=== PATIENT | female | born 2000 | race American Indian/Alaskan Native ===

== ENCOUNTER → 2018-10-14 | Outpatient (CLI) | payer OTHER | LOC: M RAD 11:25 | DX: Z34.83 Encounter for supervision of other normal pregnancy, third trimester (principal) | CPT/HCPCS: 76811 ==

== ENCOUNTER → 2018-11-26 | Outpatient (CLI) | payer OTHER ==
--- NOTE | 2018-11-26 16:59 | REP ---
Obstetric sonography: History: Supervision of , growth study. Size less than dates. 38 weeks 4 days. Findings: Scanning through the gravid uterus demonstrates a viable single intrauterine gestation in a cephalic lie. motion is observed and heart rate is recorded at 136 beats per minute. A posterior fundal grade 3 placenta is seen without evidence of previa. Amniotic fluid is subjectively normal. Closed cervical length is 2.6 cm. No extrauterine abnormalities observed. There has been less than expected interval growth. The following anatomic structures are identified today and felt to be unremarkable: cranium, cavum, lungs, left and right ventricular outflow tract views, diaphragm, left-sided stomach, abdominal wall cord insertion, three-vessel umbilical cord, kidneys and bladder. Biometry chart: BPD 9.2 cm = 37 weeks 1 day HC 33.1 cm = 37 weeks 5 days AC 33.2 cm = 37 weeks 1 day FL 6.8 cm = 34 weeks 6 days HL 6.0 cm = 34 weeks 4 days HC/AC ratio normal 1.0. Cephalic index normal 0.78. Estimated weight 2987 grams, 6 pounds 9 ounces, 34th percentile for 38 weeks 1 day. ENRICO normal 11.9 cm. S/D ratio normal 2.01. Impression: Viable single intrauterine gestation at 36 weeks 2 days by today's composite criteria. Expected gestational age estimate based on prior sonography is 38 weeks 0 days. LAYO by prior sonography December 10, 2018. Estimated weight is at the 34th percentile. Somewhat less than expected interval growth. Electronically Signed by Derick Schmidt MD 11/26/2018 07:43 P
== END ==
LOC: M RAD 15:08
PROVIDERS: ATTEND Obstetrics & Gynecology
DX: Z36.89 Encounter for other specified antenatal screening (principal); Z3A.36 36 weeks gestation of pregnancy

== ENCOUNTER 2018-12-11 07:42 | Inpatient (IN) | payer OTHER ==
[2018-12-11] VITALS (48 sets, daily range): BP systolic 92–157; BP diastolic 55–103
[~2018-12-11] VITALS: Ht 160 cm; Wt 72.5 kg
[2018-12-11] MEDS ORDERED: PRENTAB9 PO (07:53)
[2018-12-11 09:24] LABS: HEMOGLOBIN 10.9 g/dl (12.0-15.5); MEAN CORPUSCULAR HEMOGLOBIN 29.1 pg (27.0-33.0); PLATELET COUNT, AUTOMATED 214 10^3/uL (150-450); RED BLOOD COUNT 3.75 10^6/uL (4.00-5.40); WHITE BLOOD COUNT 10.5 10^3/uL (4.0-10.0)
[2018-12-11] MEDS ORDERED: PENICILLIN G POTASSIUM IV 5 MU in D5W MINI-BAG PLUS 100 ML IV STA (11:26)
[2018-12-11] MEDS ORDERED: OXYTOCIN DRIP 30 UNITS in APPROPRIATE DILUENT 1 EA IV SCH (11:30)
[2018-12-11] MEDS ORDERED: OXYTOCIN 30 UNITS IN 0.9% NaCl 500ML IV BAG (J2590) As Ordered ONE (11:33)
[2018-12-11] MEDS: LR 1,000 ML IV SCH ×2 (11:44→15:47)
[2018-12-11 12:00] LABS: AMPHETAMINES URINE REFLEX NEGATIVE (NEGATIVE); BARBITURATES URINE REFLEX NEGATIVE (NEGATIVE); BENZODIAZEPINES URINE REFLEX NEGATIVE (NEGATIVE); CANNABINOIDS URINE REFLEX NEGATIVE (NEGATIVE); COCAINE METABOLITE URINE REFLE NEGATIVE (NEGATIVE); METHADONE URINE REFLEX NEGATIVE (NEGATIVE); OPIATES URINE REFLEX NEGATIVE (NEGATIVE); PHENCYCLIDINE URINE REFLEX NEGATIVE (NEGATIVE)
--- NOTE | 2018-12-11 12:15 | HPE ---
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 Her risk factors is she has had no care. She has condyloma acuminata, exterior introitus, GBS positive. She is adopting out the baby. She appears to be disconnected from the and she failed a 1-hour GTT without adequate backup. Labs are O+, HIV negative, hepatitis negative, RPR negative, rubella immune. Varicella immune. Urine negative. Gonorrhea, chlamydia neg. 1-hour glucose was 164, hemoglobin 10.9, hematocrit 33.0 platelets 214, blood pressure 123/81, respirations 16, pulse 68, temperature 98.0. Urine 1.000, pH 7 and negative. On examination, she does not appear distressed. Symphysis fundus height is appropriate. Four-quadrant bowel sounds, vertex category I strip, 100% effaced 0 station, bulging membranes, 2 cm, soft, posterior. We did discuss with this lady and try to find out why she entered care at 31 weeks and the story continually changes from the chart to the nurse involved in labor and delivery to what she tells us. Apparently she had a early dating ultrasound, although there is no evidence that and she was going to have a termination of . She then showed up in clinic at 31 weeks of gestation. Not having had an termination of and when asked her what happened between her initial visit elsewhere and 31 weeks because as she had mentioned, she was going to have a termination of , she said she forgot she was . The patient is well oriented to time place and space arrangement, however, she is very vague and obtuse about the or the surroundings regarding the . She does not seem to know that she has condyloma acuminata and it is not documented anywhere in the chart as most recent as her last pelvic examination. The rest the examination is relatively normal. She is normocephalic, atraumatic. Neck: Full range of motions. Pupils equal and reactive to light. Distal pulses symmetric. No evidence of deep venous thrombosis (DVT), pulmonary embolus (PE) or superficial phlebitis. Lungs are clear bilaterally to base. No wheezes or rhonchi. No costovertebral angle (CVA) tenderness. Abdomen is soft. Four quadrant bowel sounds are noted. Appropriate category I strip. She has no rashes, pruritus or tattoos but she does have a condyloma and the external condyloma cauliflower nature, not actually at the introital opening. She has no arthralgia, myalgia and joint pain. No complaints of cough, wheeze, shortness of breath or dyspnea on exertion. No bruising. Not bleeding. Neuro complete. No incontinency, frequency. No nausea, vomiting, diarrhea or constipation. Apparently, regarding diabetes is her 1-hour glucose was 164 and she had no followup. Her gynecological history is that she has never had a Pap smear. She denies any sexually transmitted disease (STD) contact or previous STDs. PAST MEDICAL AND SURGICAL HISTORY: Unremarkable. FAMILY HISTORY: Noncontributory. She does not smoke, drink or abuse drugs. 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 Is not interest in having anyone around at the delivery. The father of the baby is not involved. She takes vitamins. ALLERGIES: Has no known allergies. We discussed the consent for vaginal delivery which is delivering the baby through the vagina, and possible assistance of forceps or vacuum devices if needed for maternal or indications. Forceps or vacuum device can assist with vaginal delivery when normal pushing efforts cannot achieve delivery or on their own or when delivery is needed in emergency for baby safety and well-being. Medications may be required to induce or augment labor in order achieve a vaginal delivery. Episiotomy may be required to help baby deliver vaginally and she may require emergency section and the understanding is that the provider will explain the procedure and the reason for the procedure and some cases, we have to go to emergency section before signing documentation but definitely a indication and a reason will be given. Sometimes a section is safer than delivery vaginally for both mom and baby. The risk of vaginal delivery include but are not limited to bleeding, infection, injury to the vagina, pelvic structures, injury to baby, damage to the uterus, reaction to anesthesia, uterine rupture, risk of hysterectomy for life-threatening bleeding or . Medications used to induce or augment labor may increase risk for infection, uterine tachysystole uterine rupture, heart rate abnormalities, the need for emergency delivery or possibly hysterectomy and hemorrhage. Additional risks for use of forceps and vacuum include scratches, hematomas of the head intracranial bleeding. The patient verbalized understanding and has elected to go ahead and have induction of labor. We also discussed the reason for using prophylactic medications for GBS positive for which she is. We spent a good 45 minutes slowly explaining the issues.
[2018-12-11] MEDS ORDERED: FENTANYL 2MCG/ML ROPIVACAINE 0.2% IN 0.9% NACL 100ML IVBAG As Ordered ONE (15:30)
[2018-12-11] MEDS: PENICILLIN G POTASSIUM IV 2.5 MU in APPROPRIATE DILUENT 1 EA IV SCH ×2 (16:27→20:44)
[2018-12-11] MEDS ORDERED: ePHEDrine SULFATE 25 MG/5 ML(5MG/ML) SYRINGE IV PRN (17:30)
[2018-12-11] MEDS ORDERED: FENTANYL/ROPIVACAINE/NACL BAG 100 ML EPIDURAL SCH (17:30)
[2018-12-11] MEDS ORDERED: REFRIGERATOR IV KEYS XX PRN (17:30)
[2018-12-11] MEDS ORDERED: NALOXONE INJ 0.4 MG/1 ML VIAL (J2310) IV PRN (17:30)
[2018-12-11] MEDS ORDERED: EPIDURAL/PCA KEYS XX PRN (17:30)
[2018-12-11] MEDS ORDERED: ONDANSETRON 4MG/2ML VIAL (J2405) IV PRN (17:30)
[2018-12-11] MEDS ORDERED: LACTATED RINGER'S 1000 ML IV PRN (17:30)
[2018-12-11] MEDS ORDERED: EPIDURAL COMMENT XX SCH (17:30)
[2018-12-11] MEDS ORDERED: diphenhydrAMINE INJ 50MG/ML VIAL (J1200) IV PRN (17:30)
[2018-12-11 22:34] LABS: CORD GAS ABE V -3.4; CORD GAS HCO3 V 23.3 MEQ/L; CORD GAS PCO2 V 48.1 mmHg; CORD GAS PH V 7.304 UNITS; CORD GAS PO2 V 15.7 mmHg; CORD GAS TCO2 V 24.8 MEQ/L
[2018-12-11 22:36] LABS: CORD GAS HCO3 A 22.6 MEQ/L; CORD GAS O2 SAT A 26.6 %; CORD GAS PCO2 A 46.7 mmHg; CORD GAS PH A 7.303 UNITS; CORD GAS PO2 A 15.1 mmHg; CORD GAS SBC A 19.5 MEQ/L; CORD GAS TCO2 A 24.1 MEQ/L
[2018-12-11] MEDS ORDERED: IBUPROFEN 800 MG TAB PO PRN (23:00)
[2018-12-11] MEDS ORDERED: MOM 30ML SUSPENSION UDC PO PRN (23:00)
[2018-12-11] MEDS ORDERED: METHYLERGONOVINE MALEATE 0.2 MG TAB PO PRN (23:00)
[2018-12-11] MEDS ORDERED: ANUSOL HC CREAM 30GM TOP PRN (23:00)
[2018-12-11] MEDS ORDERED: MEASLES,MUMPS,RUBELLA VACCINE INJ (MMR-II) (90707) SC SCH (23:00)
[2018-12-11] MEDS ORDERED: DOCUSATE SODIUM 100 MG CAP PO PRN (23:00)
[2018-12-11] MEDS ORDERED: ACETAMINOPHEN 500 MG TAB PO PRN (23:00)
[2018-12-11] MEDS ORDERED: RHOGAM 300 MCG (1500 IU) INJ (J2790) IM SCH (23:00)
[2018-12-11] MEDS ORDERED: DIBUCAINE 1% OINTMENT 30GM TOP PRN (23:00)
--- NOTE | 2018-12-11 23:16 | DN ---
DATE: 12/11/2018 DELIVERY NOTE This is a 18-year-old 1 admitted for induction of labor at 41 weeks of gestation, had an epidural in place, had artificial rupture of membranes (ARM) draining clear liquor, at full dilatation. After passive descent, delivered a live female infant weighing 6 pounds 11 ounces, 3020 grams, scores of 9 and 9 at one and five minutes respectfully. Arterial pH 7.3, base excess -4.0, venous pH 7.3, base excess -3.4. Uterus contracted well under Pitocin. Placenta delivered spontaneously thereafter, three-vessel cord, membranes and tissues intact. Anterior, posterior and lateral estes were intact. Sphincter was tight. Patient and baby tolerating procedure well.
[2018-12-12] MEDS ORDERED: OXYTOCIN INJ 10 UNITS/ML VIAL (J2590) IV ONE
[2018-12-12 04:01] VITALS: BP 97/63
[2018-12-12 04:03] VITALS: BP 114/69
[2018-12-12 07:05] LABS: HEMATOCRIT 29.7 % (36.0-47.0); HEMOGLOBIN 9.8 g/dl (12.0-15.5); MEAN CORPUSCULAR HEMOGLOBIN 28.2 pg (27.0-33.0); MEAN CORPUSCULAR VOLUME 85.3 fl (80.0-96.0); PLATELET COUNT, AUTOMATED 179 10^3/uL (150-450); RED BLOOD COUNT 3.48 10^6/uL (4.00-5.40); WHITE BLOOD COUNT 16.1 10^3/uL (4.0-10.0)
--- NOTE | 2018-12-12 07:18 | IPN ---
DATE OF SERVICE: 12/12/2018 This lady is a 1 now para 1 who was admitted for induction of labor at 41 weeks of gestation. Had Pitocin, epidural, artifical rupture of membranes draining clear Liqui. Had spontaneous vaginal delivery of a live female 6 pounds 11 ounces, 3020 grams, of 9 and 9 at one and five minutes respectively. Arterial pH 7.3, base excess -4.0, venous pH 7.3, base excess -3.4. Intact three vessels. No issues with the perineum. Today is her first day . We are awaiting remote sensing research scientist and legal papers in order to sign the baby over. The patient is giving the baby up for adoption. We discussed phlebitis, cystitis, mastitis, endometritis, cellulitis, diet, exercise, pain management, perineal, breast and wound care. We have given her her meds for discharge. She is not breast-feeding. She is bottle feeding the baby at the present time. Her blood pressure this morning is 114/69, respirations 18, pulse is 18, temperature is not recorded. Her admitting hemoglobin was 10.9, hematocrit 33.0, platelets were 214. Her day #1 hemoglobin is pending. The patient is planning on discharge once discharge papers are presented. She was given her meds and was told to call [facility]OSS on Saturday to make a 6-week checkup.
[2018-12-12] MEDS ORDERED: PRENATAL VITAMINS CHEWABLE TABLET PO SCH (09:00)
[2018-12-12 09:07] VITALS: BP 125/59
[2018-12-12] MEDS ORDERED: PRENTAB9 PO (17:38)
[2018-12-12] MEDS ORDERED: MAPA500T2 PO (17:38)
[2018-12-12] MEDS ORDERED: IBUP-1114 PO (17:38)
[2018-12-12] MEDS ORDERED: COLA100C5 PO (17:38)
== END 2018-12-12 18:25 | disposition home or self-care (01) | DRG 806 ==
LOC: M LDI 07:42
PROVIDERS: ADMIT Obstetrics & Gynecology; ATTEND Obstetrics & Gynecology
PROC: 10E0XZZ Delivery of Products of Conception, External Approach (ICD-10-PCS; principal; 2018-12-11)
PROC: 10907ZC Drainage of Amniotic Fluid, Therapeutic from Products of Conception, Via Natural or Artificial Opening (ICD-10-PCS; 2018-12-11)
PROC: 3E033VJ Introduction of Other Hormone into Peripheral Vein, Percutaneous Approach (ICD-10-PCS; 2018-12-11)
DX: O48.0 Post-term pregnancy (principal); Z37.0 Single live birth; O98.32 Other infections with a predominantly sexual mode of transmission complicating childbirth; Z3A.41 41 weeks gestation of pregnancy; O99.824 Streptococcus B carrier state complicating childbirth; A63.0 Anogenital (venereal) warts; Z91.14 Patient's other noncompliance with medication regimen